=== PATIENT | male | born 1985 | race African-American/Black ===

== ENCOUNTER 2021-05-28 22:10 | Emergency (ER) | payer OTHER ==
[~2021-05-28] VITALS: Ht 167.6 cm; Wt 86.9 kg
[2021-05-28] MEDS ORDERED: CELE1CAP7 PO (22:48)
[2021-05-29] MEDS ORDERED: KETOROLAC 30 MG/ML 1ML VIAL IM ONE (07:00)
[2021-05-29] MEDS ORDERED: ACETAMINOPHEN 325 MG TAB PO ONE (07:00)
[2021-05-29] MEDS ORDERED: MEDR4PAK PO (08:11)
[2021-05-29] MEDS ORDERED: CYCL-707 PO (08:11)
[2021-05-29] MEDS ORDERED: PERCOCET 5MG/325MG TAB PO ONE (08:35)
--- NOTE | 2021-05-29 09:29 | REP ---
INDICATION: severe back pain, right radiculopathy. COMPARISON: None. TECHNIQUE: Axial noncontrast images of the lumbosacral spine from mid T12 through mid sacrum with coronal and sagittal reformations. This CT examination was performed using the following dose reduction techniques: Automated exposure control, adjustment of mA and/or kv according to the patient's size, and use of iterative reconstruction technique. FINDINGS: Alignment and lordosis maintained. Vertebral bodies are intact. Posterior elements and spinous processes are intact. There is no evidence for acute fracture/compression injury or subluxation. The spinal canal is patent. The paravertebral soft tissues are normal. Very small posterior disc bulges at L4-5 and L5-S1 are identified without obvious impingement on the lateral recesses or neural foramen. IMPRESSION: Normal age-appropriate lumbosacral spine CT. No evidence for acute fracture/compression injury or subluxation. Small posterior disc bulges at L4-5 and L5-S1. If the patient remains symptomatic consider outpatient MRI for further investigation. <Electronically signed by Abiodun Boyd > 05/29/21 [id number]
[2021-05-29 09:43] VITALS: BP 139/79
== END 2021-05-29 10:05 | disposition home or self-care (01) ==
LOC: M ED 22:10
DX: M54.31 Sciatica, right side (principal); M51.26 Other intervertebral disc displacement, lumbar region
CPT/HCPCS: 72131; 96372; 99283; J1885

== ENCOUNTER 2021-06-01 12:34 | Emergency (ER) | payer OTHER ==
[~2021-06-01] VITALS: Ht 170.2 cm; Wt 83.2 kg
[~2021-06-01 12:34] MED LIST: CELE1CAP7 PO; CYCL-707 PO; MEDR4PAK PO
--- NOTE | 2021-06-01 13:14 | REP ---
INDICATION: right renal colic radiating to groin COMPARISON: None TECHNIQUE: Axial noncontrast images from the lung bases to the pubic symphysis with coronal and sagittal reformations. This CT examination was performed using the following dose reduction techniques: Automated exposure control, adjustment of mA and/or kv according to the patient's size, and use of iterative reconstruction technique. FINDINGS: Lung bases are clear. Visualized heart and pericardium normal. Liver, spleen, pancreas, gallbladder, bilateral adrenal glands and kidneys are normal. There is no hydronephrosis, perinephric stranding, intrarenal or obstructing ureteral calculus. A 3 mm calcification in the deep right hemipelvis likely represents phlebolith and less likely nonobstructing ureteral stone. The enteric system is unremarkable and without obstruction or acute inflammatory process. Normal terminal ileum and appendix identified in the right lower quadrant. Mild to moderate fecal stasis is suggested and should be correlated clinically. Pelvis demonstrates normal bladder and age-appropriate prostate/seminal vesicles.. No ascites. No free air. No adenopathy. No focal inflammatory stranding. Abdominal aorta without aneurysm. Musculoskeletal structures are intact and without acute osseous abnormality. IMPRESSION: 1. The 3 mm calcification identified in the right hemipelvis likely represents phlebolith as there is no associated perinephric stranding or hydroureteronephrosis. Correlation with urinalysis is recommended. 2. Questionable moderate fecal stasis should be correlated with physical examination. 3. No ascites. No free air. No focal inflammatory stranding. <Electronically signed by Abiodun Boyd > 06/01/21 [id number]
--- NOTE | 2021-06-01 18:50 | REP ---
INDICATION: right testicular pain COMPARISON: None. TECHNIQUE: Phillips scale and color Doppler evaluation using linear and curved array transducer with color Doppler evaluation. FINDINGS: The testicles and epididymi are relatively normal in contour, size, echogenicity, vascularity and overall appearance. There is no evidence for intratesticular mass lesion, infectious/inflammatory process, or torsion. No varicoceles are identified. Very small right hydrocele noted.. Right testicle measures 3.7 x 2.1 x 2.4 cm. Left testicle measures 3.6 x 2.1 x 2.6 cm. IMPRESSION: Essentially normal scrotal ultrasound. <Electronically signed by Abiodun Boyd > 06/01/21 [id number]
--- NOTE | 2021-06-01 18:52 | REP ---
INDICATION: right groin pain COMPARISON: None. TECHNIQUE: Grayscale and color B-mode ultrasound examination using linear high-frequency transducer. FINDINGS: Ultrasound examination of the right and left groin demonstrates normal subcutaneous tissue and structures. No hernia, fluid collection, or significant adenopathy. No mass. IMPRESSION: Normal examination. <Electronically signed by Abiodun Boyd > 06/01/21 [id number]
[2021-06-01] MEDS ORDERED: NAPR-837 PO (19:21)
[2021-06-01 19:36] VITALS: BP 168/90
== END 2021-06-01 19:38 | disposition home or self-care (01) ==
LOC: M ED 12:34
DX: M54.41 Lumbago with sciatica, right side (principal); M51.36 Other intervertebral disc degeneration, lumbar region

== ENCOUNTER 2021-11-13 16:09 | Emergency (ER) | payer OTHER ==
[~2021-11-13] VITALS: Ht 172.7 cm; Wt 92.8 kg
[~2021-11-13 16:09] MED LIST changes: +NAPR-837 PO
[2021-11-13] MEDS ORDERED: GABA-1171 PO (17:03)
[2021-11-13] MEDS ORDERED: CHLO125TA (17:04)
[2021-11-13] MEDS ORDERED: BENA20TA PO (17:04)
[2021-11-13] MEDS ORDERED: SERT-141 PO (17:04)
[2021-11-13] MEDS ORDERED: TIZA10TA (17:04)
[2021-11-13] MEDS ORDERED: AMLO1TAB25 PO (17:04)
[2021-11-13] MEDS ORDERED: GABA-282 (17:04)
[2021-11-13 19:19] LABS: BASO % 0.5 % (0.0-1.0); EOS % 0.3 % (0.0-3.0); HEMATOCRIT 44.6 % (42.0-52.0); HEMOGLOBIN 14.6 g/dl (13.5-17.5); LYMPH # 1.9 10^3/uL (1.5-5.0); LYMPH % 21.4 % (24.0-44.0); MEAN CORPUSCULAR HEMOGLOBIN 29.4 pg (27.0-33.0); MEAN CORPUSCULAR HGB CONC 32.7 g/dl (32.0-36.5); MEAN CORPUSCULAR VOLUME 89.9 fl (80.0-96.0); MONO # 0.6 10^3/uL (0.0-0.8); MONO % 7.1 % (2.0-8.0); NEUTROPHILS # 6.2 10^3/uL (1.5-8.5); NEUTROPHILS % 70.5 % (36.0-66.0); PLATELET COUNT, AUTOMATED 265 10^3/uL (150-450); RED BLOOD COUNT 4.96 10^6/uL (4.30-6.10); WHITE BLOOD COUNT 8.8 10^3/uL (4.0-10.0)
[2021-11-13 19:31] LABS: INR 0.97; PROTHROMBIN TIME 13.3 SECONDS (12.7-14.5)
[2021-11-13 19:53] LABS: CK-MB VALUE MASS 1.4 NG/ML (<3.6); MB/CK RELATIVE INDEX 1.17 (< OR =4)
[2021-11-13 19:57] LABS: ALBUMIN 3.7 GM/DL (3.2-5.2); ALT/SGPT 32 U/L (12-78); BILIRUBIN,DIRECT 0.1 MG/DL (0.0-0.2); BILIRUBIN,TOTAL 0.3 MG/DL (0.2-1.0); BLOOD UREA NITROGEN 13 MG/DL (7-18); CALCIUM LEVEL 9.8 MG/DL (8.5-10.1); CARBON DIOXIDE LEVEL 25 MEQ/L (21-32); CHLORIDE LEVEL 107 MEQ/L (98-107); CREATININE FOR GFR 1.05 MG/DL (0.70-1.30); GLOMERULAR FILTRATION RATE > 60.0 (>60); GLUCOSE, FASTING 87 MG/DL (70-100); LIPASE 103 U/L (73-393); POTASSIUM SERUM 4.4 MEQ/L (3.5-5.1); SODIUM LEVEL 141 MEQ/L (136-145); TOTAL PROTEIN 7.3 GM/DL (6.4-8.2)
[2021-11-13 20:22] LABS: D-DIMER QUANT < 270 ng/ml (<500)
[2021-11-13 20:56] LABS: CK-MB VALUE MASS < 1.0 NG/ML (<3.6); CPK CREATINE PHOSPHOKINASE 112 U/L (39-308); MB/CK RELATIVE INDEX 0.89 (< OR =4)
[2021-11-13] MEDS ORDERED: NS 1,000 ML IV ONE (21:45)
[2021-11-13] MEDS ORDERED: NS 500 ML IV ONE (23:50)
[2021-11-14] MEDS ORDERED: AMLO1TAB25 PO (01:45)
[2021-11-14] MEDS ORDERED: FUROSEMIDE 20MG/2ML VIAL (J1940) IV ONE (02:00)
[2021-11-14 02:30] VITALS: BP 131/67
== END 2021-11-14 02:49 | disposition home or self-care (01) ==
LOC: M ED 16:09
DX: I10 Essential (primary) hypertension (principal); R07.9 Chest pain, unspecified; R94.31 Abnormal electrocardiogram [ECG] [EKG]; R42 Dizziness and giddiness
CPT/HCPCS: 71046; 80048; 80076; 82550; 82553; 83690; 84443; 84484; 85025; 85379; 85610; 85730; 87798; 93005; 96361; 96374; 99285; J1940

== ENCOUNTER → 2021-12-07 | Outpatient (CLI) | payer OTHER ==
[~2021-12-07] MED LIST changes: +AMLO1TAB25 PO; +BENA20TA PO; +CHLO125TA; +GABA-1171 PO; +GABA-282; +SERT-141 PO; +TIZA10TA
== END ==
LOC: M CARPUL 13:04
DX: I10 Essential (primary) hypertension (principal)